=== PATIENT | female | born 2005 | race Caucasian/White ===

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

== ENCOUNTER 2025-01-10 14:40 | Outpatient (CLI) | payer OTHER, SELFPAY | END 2025-01-10 14:41 | disposition home or self-care (01) | LOC: NFLDREF 01-11 20:55 | PROVIDERS: PCP Family Medicine; Referring Provider Family Medicine; Visit Provider Physician Assistant | DX: E61.1 Iron deficiency (principal) | CPT/HCPCS: 82728 ==